=== PATIENT | male | born 1935 | race Caucasian/White ===

== ENCOUNTER 2023-01-24 01:35 | Emergency (ER) | payer MEDICARE, OTHER | END 2023-01-24 03:13 | disposition home or self-care (01) | LOC: JP.ED 01:35 | DX: K59.00 Constipation, unspecified (principal); I10 Essential (primary) hypertension; I48.91 Unspecified atrial fibrillation; E78.00 Pure hypercholesterolemia, unspecified; J45.909 Unspecified asthma, uncomplicated; E11.9 Type 2 diabetes mellitus without complications | CPT/HCPCS: 99283 ==

== ENCOUNTER 2023-10-31 14:05 | Emergency (ER) | payer MEDICARE ==
[2023-10-31 16:39] LABS: BASOPHILS PERCENT AUTO 0.1 % (0.1-1.3); EOSINOPHILS PERCENT AUTO 0.1 % (0.0-5.4); HEMATOCRIT 35.7 % (38.4-49.7); HEMOGLOBIN 11.9 g/dL (12.9-16.9); IMMATURE GRAN ABSOLUTE AUTO 0.12 K/uL (0.00-0.23); IMMATURE GRAN PERCENT AUTO 0.7 % (0.0-0.7); LYMPHOCYTES ABSOLUTE AUTO 0.63 K/uL (0.8-3.3); LYMPHOCYTES PERCENT AUTO 3.7 % (11.4-47.7); MEAN CORPUSCULAR HEMOGLOBIN 33.4 pg (31.6-35.5); MEAN CORPUSCULAR HGB CONC 33.3 g/dL (31.6-35.5); MEAN CORPUSCULAR VOLUME 100.3 fL (81.4-99.0); MONOCYTES ABSOLUTE AUTO 1.42 K/uL (0.20-0.90); MONOCYTES PERCENT AUTO 8.3 % (3.3-12.6); NEUTROPHILS ABSOLUTE AUTO 14.86 K/uL (1.0-7.6); NEUTROPHILS PERCENT AUTO 87.1 % (40.0-78.1); PLATELET COUNT,PLT 129 K/uL (130-375); RED BLOOD CELL COUNT 3.56 M/uL (4.14-5.76); WHITE BLOOD CELL COUNT,WBC 17.1 K/uL (3.2-11.0)
[2023-10-31 16:42] LABS: BASOPHILS ABSOLUTE AUTO 0.01 K/uL (0.00-0.10); EOSINOPHILS ABSOLUTE AUTO 0.01 K/uL (0.00-0.40)
[2023-10-31 16:59] LABS: ANION GAP 14.1 mmol/L (5.0-14.0); CALCIUM 9.8 mg/dL (8.5-10.1); CREATININE 2.9 mg/dL (0.8-1.3); EST CRCL DRUG DOSING (CG) 18.28 mL/min; MAGNESIUM 2.3 mg/dL (1.8-2.4); PHOSPHORUS 4.4 mg/dL (2.5-4.9); POTASSIUM,K 4.1 mmol/L (3.6-5.2)
[2023-10-31] MEDS: ceFAZolin 2 GM in Premix Bag 1 BAG IV ONE (17:33)
[2023-10-31] MEDS: Sodium Chloride 0.9% 10 ML Syringe FLUSH PRN (17:36)
[2023-10-31 18:35] LABS: APPEARANCE,URINE CLEAR (CLEAR); BILIRUBIN,URINE NEGATIVE (NEGATIVE); COLOR,URINE YELLOW (YELLOW); GLUCOSE,URINE NEGATIVE (NEGATIVE); KETONES,URINE NEGATIVE (NEGATIVE); LEUKOCYTE ESTERASE,URINE NEGATIVE (NEGATIVE); NITRITE,URINE NEGATIVE (NEGATIVE); OCCULT BLOOD,URINE NEGATIVE (NEGATIVE); PROTEIN,URINE 30 mg/dL (NEGATIVE)
[2023-10-31 18:37] LABS: AMORPHOUS SEDIMENT,URINE NOT SEEN; BACTERIA,URINE FEW; EPITHELIAL CELLS,URINE FEW; MUCUS,URINE FEW; RBC,URINE 0-5 (0-5); WBC,URINE 0-5 (0-5)
== END 2023-10-31 19:24 | disposition home or self-care (01) ==
LOC: JP.ED 14:05
DX: I11.0 Hypertensive heart disease with heart failure (principal); I50.9 Heart failure, unspecified; I48.20 Chronic atrial fibrillation, unspecified; N17.9 Acute kidney failure, unspecified; L03.116 Cellulitis of left lower limb; R00.1 Bradycardia, unspecified; E78.00 Pure hypercholesterolemia, unspecified; E11.9 Type 2 diabetes mellitus without complications; Z79.01 Long term (current) use of anticoagulants; Z95.810 Presence of automatic (implantable) cardiac defibrillator; Z79.82 Long term (current) use of aspirin; Z79.899 Other long term (current) drug therapy
CPT/HCPCS: 36415; 80048; 81001; 83735; 84100; 85025; 86140; 93971-LT; 96365; 99284-25; J0690; J3490

== ENCOUNTER 2023-12-08 13:40 | Inpatient (IN) | payer MEDICARE ==
[2023-12-08 14:35] LABS: BASOPHILS ABSOLUTE AUTO 0.03 K/uL (0.00-0.10); BASOPHILS PERCENT AUTO 0.4 % (0.1-1.3); EOSINOPHILS ABSOLUTE AUTO 0.16 K/uL (0.00-0.40); HEMATOCRIT 33.9 % (38.4-49.7); HEMOGLOBIN 11.2 g/dL (12.9-16.9); IMMATURE GRAN ABSOLUTE AUTO 0.04 K/uL (0.00-0.23); IMMATURE GRAN PERCENT AUTO 0.5 % (0.0-0.7); LYMPHOCYTES ABSOLUTE AUTO 0.49 K/uL (0.8-3.3); MEAN CORPUSCULAR HEMOGLOBIN 32.4 pg (31.6-35.5); MONOCYTES ABSOLUTE AUTO 0.79 K/uL (0.20-0.90); MONOCYTES PERCENT AUTO 9.7 % (3.3-12.6); NEUTROPHILS ABSOLUTE AUTO 6.66 K/uL (1.0-7.6); NEUTROPHILS PERCENT AUTO 81.4 % (40.0-78.1); PLATELET COUNT,PLT 182 K/uL (130-375); RED BLOOD CELL COUNT 3.46 M/uL (4.14-5.76); WHITE BLOOD CELL COUNT,WBC 8.2 K/uL (3.2-11.0)
[2023-12-08 14:50] LABS: ANION GAP 10.2 mmol/L (5.0-14.0); CALCIUM 9.1 mg/dL (8.5-10.1); CREATININE 3.2 mg/dL (0.8-1.3); EST CRCL DRUG DOSING (CG) 16.57 mL/min; POTASSIUM,K 3.9 mmol/L (3.6-5.2)
[2023-12-08] MEDS ORDERED: Acetaminophen 325 MG Tab PO PRN (17:31)
[2023-12-08] MEDS ORDERED: Albuterol 0.083% 2.5 MG/3 ML Neb Soln NEB PRN (17:31)
[2023-12-08] MEDS: Bumetanide 1 MG/4 ML MDV IVPUSH ONE (18:36)
[2023-12-08] MEDS: atorvaSTATin 20 MG Tab PO SCH (22:14)
[2023-12-08] MEDS: Apixaban 2.5 MG Tab PO SCH (22:14)
[2023-12-09 05:51] LABS: IRON,FE 24 ug/dL (65-175); PERCENT FE SATURATION 12 % (20-55); TOTAL IRON BINDING CAPACITY 204 ug/dl (250-450)
[2023-12-09] MEDS: Bumetanide 2.5 MG/10 ML MDV IVPUSH SCH (05:51)
[2023-12-09 06:06] LABS: ANION GAP 10.6 mmol/L (5.0-14.0); CALCIUM 8.8 mg/dL (8.5-10.1); EST CRCL DRUG DOSING (CG) 17.62 mL/min; MAGNESIUM 2.4 mg/dL (1.8-2.4); POTASSIUM,K 3.9 mmol/L (3.6-5.2)
[2023-12-09] MEDS: Aspirin 81 MG Tab.EC PO SCH (08:15)
[2023-12-09] MEDS: Amiodarone 200 MG Tab PO SCH (08:15)
[2023-12-09] MEDS: Spironolactone 25 MG Tab PO SCH (08:15)
[2023-12-09] MEDS: Metoprolol Succinate 25 MG Tab.ER PO SCH (09:31)
[2023-12-09] MEDS: Sennosides/Docusate Sodium 50-8.6 MG Tab PO PRN (09:34)
[2023-12-09] MEDS: Sodium Ferric Gluconate Cmplex 250 MG in Sodium Chloride 0.9% 100 ML IV SCH (14:08)
[2023-12-09] MEDS: Magnesium Hydroxide 400 MG/5 ML Susp 30 ML Cup PO PRN (21:01)
[2023-12-10 05:45] LABS: ANION GAP 10.3 mmol/L (5.0-14.0); CALCIUM 8.9 mg/dL (8.5-10.1); CREATININE 2.7 mg/dL (0.8-1.3); EST CRCL DRUG DOSING (CG) 19.57 mL/min; POTASSIUM,K 3.9 mmol/L (3.6-5.2)
[2023-12-11 05:24] LABS: CALCIUM 9.3 mg/dL (8.5-10.1); CREATININE 2.6 mg/dL (0.8-1.3); EST CRCL DRUG DOSING (CG) 20.33 mL/min; POTASSIUM,K 3.8 mmol/L (3.6-5.2)
[2023-12-11] MEDS: Bisacodyl 5 MG Tab PO ONE (11:32)
[2023-12-12 05:33] LABS: CALCIUM 9.3 mg/dL (8.5-10.1); CREATININE 2.4 mg/dL (0.8-1.3); EST CRCL DRUG DOSING (CG) 22.02 mL/min
[2023-12-13 06:04] LABS: CALCIUM 9.6 mg/dL (8.5-10.1); CREATININE 2.7 mg/dL (0.8-1.3); EST CRCL DRUG DOSING (CG) 19.57 mL/min; MAGNESIUM 2.3 mg/dL (1.8-2.4); POTASSIUM,K 4.4 mmol/L (3.6-5.2)
[2023-12-13] MEDS: Bisacodyl 10 MG Supp RECTAL ONE (15:41)
[2023-12-13] MEDS: Bisacodyl 5 MG Tab PO SCH (15:44)
[2023-12-13] MEDS: Ondansetron 4 MG Tab.DIS PO PRN (22:39)
[2023-12-14 05:14] LABS: CALCIUM 9.6 mg/dL (8.5-10.1); CREATININE 3.2 mg/dL (0.8-1.3); EST CRCL DRUG DOSING (CG) 16.51 mL/min; POTASSIUM,K 4.8 mmol/L (3.6-5.2)
[2023-12-14 05:17] LABS: ANION GAP 14.8 mmol/L (5.0-14.0)
[2023-12-14] MEDS: Metoprolol Succinate 25 MG Tab.ER PO SCH (11:10)
[2023-12-14] MEDS ORDERED: Sodium Ferric Gluconate Cmplex 250 MG in Sodium Chloride 0.9% 100 ML IV ONE (12:46)
[2023-12-14] MEDS: Ferrous Sulfate 325 MG Tab PO SCH (17:05)
[2023-12-15] MEDS: Calcium Carbonate 500 MG Tab.Chew PO PRN (03:25)
[2023-12-15 04:48] LABS: HEMATOCRIT 34.3 % (38.4-49.7); HEMOGLOBIN 11.3 g/dL (12.9-16.9); MEAN CORPUSCULAR HEMOGLOBIN 31.9 pg (31.6-35.5); MEAN CORPUSCULAR HGB CONC 32.9 g/dL (31.6-35.5); MEAN CORPUSCULAR VOLUME 96.9 fL (81.4-99.0); RED BLOOD CELL COUNT 3.54 M/uL (4.14-5.76); WHITE BLOOD CELL COUNT,WBC 12.4 K/uL (3.2-11.0)
[2023-12-15 05:15] LABS: CALCIUM 9.5 mg/dL (8.5-10.1); EST CRCL DRUG DOSING (CG) 14.28 mL/min
[2023-12-15 05:26] LABS: CREATININE 3.7 mg/dL (0.8-1.3)
[2023-12-15] MEDS: Ondansetron 4 MG/2 ML SDV IV PRN (12:32)
[2023-12-15] MEDS: Bumetanide 1 MG/4 ML MDV IVPUSH ONE (13:51)
== END 2023-12-15 20:20 | DRG 291 ==
LOC: JP.ED 13:40 → JP.MS 17:07
PROVIDERS: ADMIT Internal Medicine; ATTEND Hospitalist
DX: R60.0 Localized edema (principal); R60.1 Generalized edema; I13.0 Hypertensive heart and chronic kidney disease with heart failure and stage 1 through stage 4 chronic kidney disease, or unspecified chronic kidney disease; I50.9 Heart failure, unspecified; N18.9 Chronic kidney disease, unspecified; I50.23 Acute on chronic systolic (congestive) heart failure; I48.20 Chronic atrial fibrillation, unspecified; N18.4 Chronic kidney disease, stage 4 (severe); L97.929 Non-pressure chronic ulcer of unspecified part of left lower leg with unspecified severity; L97.919 Non-pressure chronic ulcer of unspecified part of right lower leg with unspecified severity; N17.9 Acute kidney failure, unspecified; Z66 Do not resuscitate; E03.9 Hypothyroidism, unspecified; K59.09 Other constipation; E78.00 Pure hypercholesterolemia, unspecified; S30.0XXA Contusion of lower back and pelvis, initial encounter; S20.219A Contusion of unspecified front wall of thorax, initial encounter; S40.022A Contusion of left upper arm, initial encounter; S40.021A Contusion of right upper arm, initial encounter; I25.10 Atherosclerotic heart disease of native coronary artery without angina pectoris; I95.9 Hypotension, unspecified; D63.1 Anemia in chronic kidney disease; Z95.1 Presence of aortocoronary bypass graft; I25.2 Old myocardial infarction; Z79.01 Long term (current) use of anticoagulants; Z90.49 Acquired absence of other specified parts of digestive tract; Z79.82 Long term (current) use of aspirin; Z79.899 Other long term (current) drug therapy; Z95.810 Presence of automatic (implantable) cardiac defibrillator; X58.XXXA Exposure to other specified factors, initial encounter
CPT/HCPCS: 36415; 51798; 71250; 71250-26; 74176; 74176-26; 80048; 82728; 83550; 83735; 85025; 85027; 93005; 93010; 93306; 99222; 99232; 99239; 99285; A9270-GY; J2405; J2916; J3490; Q0162